=== PATIENT | female | born 1960 | race Caucasian/White ===

== ENCOUNTER 2016-09-12 10:11 | Inpatient (IN) | payer MEDICAID ==
[~2016-09-12] VITALS: Ht 160 cm; Wt 52.9 kg
[2016-09-12] MEDS ORDERED: METOCLOPRAMIDE HCL 5MG/ml INJ 2ml VIAL IV ONE (11:30)
[2016-09-12] MEDS ORDERED: KETOROLAC TROMETH 30 MG/ML 1ML VIAL IV ONE (11:30)
[2016-09-12 11:49] LABS: Basophils # (auto) 0.2 uL; Basophils % (auto) 1.9 % (0.0-2.0); DEFINITIVE VIEW TRANSMISSION; Eosinophils # (auto) 0.1 uL; Hematocrit 25.3 % (36.0-46.0); Hemoglobin 7.7 g/dL (12.2-16.2); Lymphocytes # (auto) 1.1 uL; Lymphocytes % (auto) 11.4 % (10.0-50.0); Mean Corpuscular Hemoglobin 23.6 pg (28.0-32.0); Mean Corpuscular Hgb Conc. 30.2 g/dL (32.0-36.0); Mean Platelet Volume 6.8 fL (7.4-10.4); Monocytes # (auto) 0.8 uL; Monocytes % (auto) 7.7 % (0.0-12.0); Neutrophils # (auto) 7.7 uL; Red Cell Distribution Width 16.9 % (11.6-16.0); White Blood Cell 9.9 10^3/uL (4.4-10.8)
[2016-09-12 11:54] LABS: Platelet Count (auto) 778 10^3/uL (140-450)
[2016-09-12 12:06] LABS: Albumin 2.7 g/dL (3.4-5.0); Calcium 8.5 mg/dL (8.5-10.1); Potassium 3.5 mmol/L (3.5-5.1)
[2016-09-12 12:08] LABS: BUN/Creatinine Ratio 20.5
[2016-09-12 12:11] LABS: Bilirubin, Total 0.2 mg/dL (0.2-1.0)
[2016-09-12] MEDS ORDERED: SODIUM CHLORIDE 0.9% 1,000 ML IV SCH (13:32)
[2016-09-12] MEDS ORDERED: PROMETHAZINE HCL 25 MG/ML 1ML IV PRN (13:45)
[2016-09-12] MEDS ORDERED: TEMAZEPAM 15 MG CAP PO PRN (13:45)
[2016-09-12] MEDS ORDERED: MORPHINE SULF INJ 2 MG/ML SYRINGE 1ML IV PRN (13:45)
[2016-09-12] MEDS ORDERED: HYDROcodone-ACET 5/325MG TAB PO PRN (13:45)
[2016-09-12] MEDS ORDERED: ACETAMINOPHEN 500 MG TAB PO PRN (13:45)
[2016-09-12] MEDS ORDERED: DEXTROSE (50%) 50ML SYRG IV PRN (13:45)
[2016-09-12] MEDS ORDERED: NITROGLYCERIN 0.4 MG SL TAB SL PRN (13:45)
[2016-09-12] MEDS ORDERED: LORazepam 0.5 MG TAB PO PRN (13:45)
[2016-09-12] MEDS: SODIUM CHLORIDE 0.9% 1,000 ML IV SCH ×2 (13:46→21:06)
[2016-09-12] MEDS ORDERED: PANTOPRAZOLE SODIUM 40 MG/10 ML VIAL IV ONE (14:00)
[2016-09-12 14:07] LABS: INR 1.12 (0.9-1.15); Partial Thromboplastin Time 26.6 sec (22.64-33.71); Prothrombin Time 11.5 sec (9.37-12.3)
[2016-09-12] MEDS: ACCU-CHEK COMFORT CURVE STRIP VI SCH ×2 (16:48→22:00)
[2016-09-12] MEDS: InsuLIN REG 1unit/0.01ml Soln (100units/ml) SC SCH ×2 (16:48→22:00)
[2016-09-12 16:57] LABS: Urine Bilirubin Negative (Negative); Urine Blood Negative /uL (Negative); Urine Color Yellow (Yellow); Urine Glucose Normal (Normal); Urine Ketone Negative (Negative); Urine Mucus FEW (None Seen); Urine Nitrite Negative (Negative); Urine RBC 1 /hpf (0 - 4); Urine Squamous Epithelial Cell FEW /hpf (<5)
[2016-09-12 18:08] LABS: Hematocrit 24.1 % (36.0-46.0); Hemoglobin 7.4 g/dL (12.2-16.2)
[2016-09-12 21:06] VITALS: BP_SYST 109; BP_SYST 122; BP_DIAS 68; BP_DIAS 90
[2016-09-12 21:30] VITALS: BP 122/90
[2016-09-12] MEDS: MORPHINE SULF INJ 2 MG/ML SYRINGE 1ML IV PRN (23:40)
[2016-09-13] VITALS (15 sets, daily range): BP systolic 109–149; BP diastolic 68–98
[2016-09-13 01:08] LABS: Hematocrit 22.4 % (36.0-46.0)
[2016-09-13 01:10] LABS: Hemoglobin 6.8 g/dL (12.2-16.2)
[2016-09-13] MEDS ORDERED: PIRO-23 PO (03:12)
[2016-09-13] MEDS ORDERED: HYDR200T PO (03:12)
[2016-09-13 05:04] LABS: Basophils # (auto) 0 uL; Basophils % (auto) 0.3 % (0.0-2.0); DEFINITIVE VIEW TRANSMISSION; Eosinophils # (auto) 0.1 uL; Eosinophils % (auto) 1.3 % (0.0-7.0); Hematocrit 20.8 % (36.0-46.0); Lymphocytes # (auto) 1.7 uL; Lymphocytes % (auto) 19.3 % (10.0-50.0); Mean Corpuscular Hemoglobin 23.9 pg (28.0-32.0); Mean Corpuscular Hgb Conc. 30.8 g/dL (32.0-36.0); Mean Corpuscular Volume 77.5 fL (80.0-100.0); Mean Platelet Volume 6.9 fL (7.4-10.4); Monocytes # (auto) 0.8 uL; Monocytes % (auto) 9.1 % (0.0-12.0); Platelet Count (auto) 632 10^3/uL (140-450); Red Cell Distribution Width 16.6 % (11.6-16.0); White Blood Cell 8.6 10^3/uL (4.4-10.8)
[2016-09-13 05:12] LABS: Hemoglobin 6.4 g/dL (12.2-16.2)
[2016-09-13 05:27] LABS: Albumin 2.2 g/dL (3.4-5.0); BUN/Creatinine Ratio 26.8; Bilirubin, Total 0.2 mg/dL (0.2-1.0); Calcium 7.9 mg/dL (8.5-10.1); Potassium 3.1 mmol/L (3.5-5.1); Total Protein 5.7 g/dL (6.4-8.2)
[2016-09-13] MEDS: SODIUM CHLORIDE 0.9% 1,000 ML IV SCH ×2 (05:58→13:19)
[2016-09-13] MEDS: ACCU-CHEK COMFORT CURVE STRIP VI SCH ×2 (06:36→11:58)
[2016-09-13] MEDS: InsuLIN REG 1unit/0.01ml Soln (100units/ml) SC SCH ×2 (06:37→11:30)
[2016-09-13] MEDS: PANTOPRAZOLE 40 MG TAB PO SCH (10:00)
[2016-09-13] MEDS ORDERED: GOLYTELY 4L KIT PO ONE (13:00)
[2016-09-13 14:53] LABS: Hematocrit 29.6 % (36.0-46.0); Hemoglobin 9.2 g/dL (12.2-16.2)
[2016-09-13] MEDS ORDERED: POTASSIUM CHL 20 Meq TABLET PO ONE (15:15)
[2016-09-13] MEDS: MORPHINE SULF INJ 2 MG/ML SYRINGE 1ML IV PRN (19:33)
[2016-09-14] VITALS: BP 137/91
[2016-09-14 04:00] VITALS: BP 133/94
[2016-09-14 05:40] LABS: Basophils # (auto) 0 uL; Basophils % (auto) 0.3 % (0.0-2.0); DEFINITIVE VIEW TRANSMISSION; Eosinophils # (auto) 0.1 uL; Eosinophils % (auto) 1.2 % (0.0-7.0); Hematocrit 31.3 % (36.0-46.0); Hemoglobin 9.7 g/dL (12.2-16.2); Lymphocytes # (auto) 1.1 uL; Lymphocytes % (auto) 10.6 % (10.0-50.0); Mean Corpuscular Hgb Conc. 31.1 g/dL (32.0-36.0); Mean Corpuscular Volume 80.6 fL (80.0-100.0); Mean Platelet Volume 6.8 fL (7.4-10.4); Monocytes # (auto) 0.8 uL; Monocytes % (auto) 7.7 % (0.0-12.0); Neutrophils # (auto) 8.2 uL; Neutrophils % (auto) 80.2 % (37.0-80.0); Platelet Count (auto) 630 10^3/uL (140-450); Red Cell Distribution Width 18.1 % (11.6-16.0); White Blood Cell 10.3 10^3/uL (4.4-10.8)
[2016-09-14] MEDS: SODIUM CHLORIDE 0.9% 1,000 ML IV SCH (06:50)
[2016-09-14 08:00] VITALS: BP 137/91
[2016-09-14] MEDS ORDERED: SODIUM CHLORIDE LOCK 10 ML ONE (08:11)
[2016-09-14] MEDS ORDERED: diphenhdrAMINE HCL 50 MG/1 ML VL ONE (08:12)
[2016-09-14] MEDS ORDERED: LIDOCAINE VISCOUS 2% 15ML UD ONE (08:12)
[2016-09-14] MEDS: PANTOPRAZOLE 40 MG TAB PO SCH ×2 (10:00→23:17)
[2016-09-14 12:00] VITALS: BP 148/98
[2016-09-14] MEDS ORDERED: ALBUTEROL SULF 2.5 MG/0.5ML(0.5%) NEB SOLN NEB PRN (12:00)
[2016-09-14] MEDS ORDERED: IPRATROPIUM BROM 0.5 MG/2.5ML INH SOL NEB PRN (12:00)
[2016-09-14] MEDS: fentaNYL CITRATE 100 MCG/2 ML VL ONE ×3 (12:47→12:59)
[2016-09-14] MEDS: MIDAZOLAM HCL 5 MG/ML-1ML VIAL ONE ×3 (12:47→12:59)
[2016-09-14 16:00] VITALS: BP 153/94
[2016-09-14 21:07] VITALS: BP 153/94
[2016-09-15] VITALS: BP 144/97
[2016-09-15 04:00] VITALS: BP 149/91
[2016-09-15] MEDS: SODIUM CHLORIDE 0.9% 1,000 ML IV SCH (04:13)
[2016-09-15] MEDS: MORPHINE SULF INJ 2 MG/ML SYRINGE 1ML IV PRN ×2 (04:13→18:22)
[2016-09-15 07:05] LABS: Albumin 2.7 g/dL (2.9-4.4); Alpha-1-Globulin 0.5 g/dL (0.0-0.4); Gamma Globulin 0.7 g/dL (0.4-1.8); Protein Total Serum 6.1 g/dL (6.0-8.5)
[2016-09-15 07:53] VITALS: BP 148/94
[2016-09-15 10:10] LABS: Basophils # (auto) 0 uL; Basophils % (auto) 0.4 % (0.0-2.0); DEFINITIVE VIEW TRANSMISSION; Eosinophils # (auto) 0.1 uL; Eosinophils % (auto) 0.7 % (0.0-7.0); Hematocrit 33.6 % (36.0-46.0); Hemoglobin 10.3 g/dL (12.2-16.2); Lymphocytes # (auto) 1.1 uL; Lymphocytes % (auto) 9.5 % (10.0-50.0); Mean Corpuscular Hemoglobin 24.9 pg (28.0-32.0); Mean Corpuscular Hgb Conc. 30.5 g/dL (32.0-36.0); Mean Corpuscular Volume 81.4 fL (80.0-100.0); Mean Platelet Volume 7.2 fL (7.4-10.4); Monocytes # (auto) 0.7 uL; Monocytes % (auto) 6.2 % (0.0-12.0); Neutrophils # (auto) 9.5 uL; Neutrophils % (auto) 83.2 % (37.0-80.0); Platelet Count (auto) 626 10^3/uL (140-450); Red Cell Distribution Width 18.2 % (11.6-16.0); White Blood Cell 11.4 10^3/uL (4.4-10.8)
[2016-09-15 10:12] LABS: BUN/Creatinine Ratio 14.7; Calcium 8.5 mg/dL (8.5-10.1); Potassium 3.4 mmol/L (3.5-5.1)
[2016-09-15] MEDS ORDERED: LIDOCAINE 2%HCL (LOCAL ANESTH.) INJ 20ML MDV ONE (10:41)
[2016-09-15] MEDS ORDERED: MIDAZOLAM HCL 1MG/1ML-2 ML VIAL ONE (11:01)
[2016-09-15] MEDS ORDERED: fentaNYL CITRATE 100 MCG/2 ML VL ONE (11:01)
[2016-09-15] MEDS ORDERED: POTASSIUM CHL 20 Meq TABLET PO ONE (11:45)
[2016-09-15 11:58] VITALS: BP 136/92
[2016-09-15] MEDS: PANTOPRAZOLE 40 MG TAB PO SCH ×2 (12:19→21:51)
[2016-09-15] MEDS: PRO-STAT 64 30ML PO SCH (13:00)
[2016-09-15 16:58] VITALS: BP 149/85
[2016-09-15] MEDS: Boost Glucose Control 8 Ounces PO SCH (18:23)
[2016-09-15 22:00] VITALS: BP 116/73
[2016-09-16 05:52] VITALS: BP 139/84
[2016-09-16 06:03] LABS: Basophils # (auto) 0 uL; Basophils % (auto) 0.3 % (0.0-2.0); DEFINITIVE VIEW TRANSMISSION; Eosinophils # (auto) 0.1 uL; Eosinophils % (auto) 1.3 % (0.0-7.0); Hematocrit 32.3 % (36.0-46.0); Hemoglobin 9.8 g/dL (12.2-16.2); Lymphocytes # (auto) 1.2 uL; Lymphocytes % (auto) 14.1 % (10.0-50.0); Mean Corpuscular Hemoglobin 24.5 pg (28.0-32.0); Mean Corpuscular Hgb Conc. 30.3 g/dL (32.0-36.0); Mean Corpuscular Volume 80.9 fL (80.0-100.0); Mean Platelet Volume 6.9 fL (7.4-10.4); Monocytes # (auto) 0.7 uL; Monocytes % (auto) 8.4 % (0.0-12.0); Neutrophils # (auto) 6.4 uL; Neutrophils % (auto) 75.9 % (37.0-80.0); Platelet Count (auto) 613 10^3/uL (140-450); Red Cell Distribution Width 18.6 % (11.6-16.0); White Blood Cell 8.5 10^3/uL (4.4-10.8)
[2016-09-16 08:00] VITALS: BP 133/91
[2016-09-16 08:46] VITALS: BP 133/91
[2016-09-16] MEDS: Boost Glucose Control 8 Ounces PO SCH ×2 (09:26→18:04)
[2016-09-16] MEDS: PANTOPRAZOLE 40 MG TAB PO SCH ×2 (12:07→22:49)
[2016-09-16] MEDS: PRO-STAT 64 30ML PO SCH (12:07)
[2016-09-16] MEDS: MORPHINE SULF INJ 2 MG/ML SYRINGE 1ML IV PRN ×2 (12:08→22:50)
[2016-09-16 13:00] VITALS: BP 124/56
[2016-09-16 16:45] VITALS: BP 124/76
[2016-09-16 22:13] VITALS: BP 128/87
[2016-09-17 05:00] VITALS: BP 131/78
[2016-09-17 07:00] VITALS: BP 121/80
[2016-09-17] MEDS: Boost Glucose Control 8 Ounces PO SCH ×2 (08:00→18:00)
[2016-09-17] MEDS: PRO-STAT 64 30ML PO SCH (09:48)
[2016-09-17] MEDS: PANTOPRAZOLE 40 MG TAB PO SCH ×2 (09:48→21:28)
[2016-09-17 11:29] VITALS: BP 127/78
[2016-09-17 16:47] VITALS: BP 132/84
[2016-09-17] MEDS: MORPHINE SULF INJ 2 MG/ML SYRINGE 1ML IV PRN (20:21)
[2016-09-17 21:30] VITALS: BP 132/84
[2016-09-17 22:00] VITALS: BP 132/84
[2016-09-18] VITALS (7 sets, daily range): BP systolic 119–138; BP diastolic 66–86
[2016-09-18 06:25] LABS: Hematocrit 32.7 % (36.0-46.0); Hemoglobin 10.1 g/dL (12.2-16.2)
[2016-09-18] MEDS: PANTOPRAZOLE 40 MG TAB PO SCH ×2 (09:44→22:15)
[2016-09-18] MEDS: PRO-STAT 64 30ML PO SCH (09:44)
[2016-09-18] MEDS: Boost Glucose Control 8 Ounces PO SCH ×2 (09:45→18:00)
[2016-09-18] MEDS: MORPHINE SULF INJ 2 MG/ML SYRINGE 1ML IV PRN ×3 (09:50→22:15)
[2016-09-19 05:45] VITALS: BP 119/77
[2016-09-19 08:00] VITALS: BP 118/82
[2016-09-19] MEDS: Boost Glucose Control 8 Ounces PO SCH ×2 (08:00→18:22)
[2016-09-19 09:00] VITALS: BP 118/82
[2016-09-19] MEDS: PRO-STAT 64 30ML PO SCH (09:19)
[2016-09-19] MEDS: PANTOPRAZOLE 40 MG TAB PO SCH ×2 (10:23→23:16)
[2016-09-19] MEDS: MORPHINE SULF INJ 2 MG/ML SYRINGE 1ML IV PRN ×2 (10:35→19:56)
[2016-09-19] MEDS ORDERED: TEMAZEPAM 15 MG CAP PO PRN (11:30)
[2016-09-19 13:00] VITALS: BP 125/79
[2016-09-19 17:00] VITALS: BP 112/87
[2016-09-19 21:46] VITALS: BP 121/80
[2016-09-20] VITALS (7 sets, daily range): BP systolic 103–119; BP diastolic 69–77
[2016-09-20 06:11] LABS: Hematocrit 33.5 % (36.0-46.0); Hemoglobin 10.6 g/dL (12.2-16.2)
[2016-09-20] MEDS: MORPHINE SULF INJ 2 MG/ML SYRINGE 1ML IV PRN ×2 (08:37→18:30)
[2016-09-20] MEDS: PANTOPRAZOLE 40 MG TAB PO SCH ×2 (10:15→22:05)
[2016-09-20] MEDS: Boost Glucose Control 8 Ounces PO SCH ×2 (10:16→18:20)
[2016-09-20] MEDS: PRO-STAT 64 30ML PO SCH (10:16)
[2016-09-20] MEDS: HYDROcodone-ACET 5/325MG TAB PO PRN (10:20)
[2016-09-21] MEDS: MORPHINE SULF INJ 2 MG/ML SYRINGE 1ML IV PRN ×5 (01:59→22:05)
[2016-09-21 05:42] VITALS: BP 115/76
[2016-09-21 09:00] VITALS: BP 101/65
[2016-09-21] MEDS: Boost Glucose Control 8 Ounces PO SCH ×4 (09:12→22:05)
[2016-09-21] MEDS: PANTOPRAZOLE 40 MG TAB PO SCH ×2 (09:13→22:04)
[2016-09-21] MEDS: PRO-STAT 64 30ML PO SCH (09:13)
[2016-09-21 13:00] VITALS: BP 104/69
[2016-09-21 16:59] VITALS: BP 109/71
[2016-09-21 19:50] VITALS: BP 100/61
[2016-09-21 22:34] VITALS: BP 100/61
[2016-09-22] MEDS: MORPHINE SULF INJ 2 MG/ML SYRINGE 1ML IV PRN ×5 (02:03→19:59)
[2016-09-22 05:14] VITALS: BP 105/75
[2016-09-22] MEDS: Boost Glucose Control 8 Ounces PO SCH ×6 (06:21→21:55)
[2016-09-22 09:00] VITALS: BP 104/67
[2016-09-22] MEDS: PANTOPRAZOLE 40 MG TAB PO SCH ×2 (10:00→22:09)
[2016-09-22] MEDS: PRO-STAT 64 30ML PO SCH (10:00)
[2016-09-22 13:00] VITALS: BP 104/63
[2016-09-22] MEDS: SODIUM CHLORIDE 0.9% 1,000 ML IV SCH (13:40)
[2016-09-22] MEDS ORDERED: IOHEXOL 300 MG/ML 100ML BOTTLE IJ ONE (15:34)
[2016-09-22 16:59] VITALS: BP 115/79
[2016-09-22 22:00] VITALS: BP 104/66
[2016-09-23] MEDS: MORPHINE SULF INJ 2 MG/ML SYRINGE 1ML IV PRN ×2 (01:26→05:54)
[2016-09-23 05:00] VITALS: BP 100/66
[2016-09-23] MEDS: SODIUM CHLORIDE 0.9% 1,000 ML IV SCH (05:55)
[2016-09-23] MEDS: Boost Glucose Control 8 Ounces PO SCH ×6 (06:00→21:22)
[2016-09-23 06:58] LABS: BUN/Creatinine Ratio 36.6; Calcium 8.8 mg/dL (8.5-10.1); Potassium 4.2 mmol/L (3.5-5.1)
[2016-09-23 09:00] VITALS: BP 112/68
[2016-09-23] MEDS: HYDROcodone-ACET 5/325MG TAB PO PRN ×3 (10:20→21:31)
[2016-09-23] MEDS: PANTOPRAZOLE 40 MG TAB PO SCH (10:20)
[2016-09-23] MEDS: PRO-STAT 64 30ML PO SCH (10:32)
[2016-09-23 13:00] VITALS: BP 102/71
[2016-09-23] MEDS ORDERED: PANT40TA2 PO (13:01)
[2016-09-23 14:01] LABS: INR 1.15 (0.9-1.15); Prothrombin Time 11.8 sec (9.37-12.3)
[2016-09-23 17:00] VITALS: BP 100/68
[2016-09-23 23:31] VITALS: BP 108/70
[2016-09-23 23:51] VITALS: BP 108/70
[2016-09-24] MEDS: HYDROcodone-ACET 5/325MG TAB PO PRN ×2 (02:52→10:07)
[2016-09-24 05:08] VITALS: BP 95/66
[2016-09-24] MEDS: Boost Glucose Control 8 Ounces PO SCH ×2 (06:00→08:00)
[2016-09-24 06:09] LABS: Hematocrit 32.3 % (36.0-46.0); Hemoglobin 10.3 g/dL (12.2-16.2)
[2016-09-24 09:00] VITALS: BP 97/62
[2016-09-24] MEDS: PRO-STAT 64 30ML PO SCH (10:00)
[2016-09-24] MEDS ORDERED: fentaNYL CITRATE 100 MCG/2 ML VL ONE (12:10)
[2016-09-24] MEDS ORDERED: MIDAZOLAM HCL 1MG/1ML-2 ML VIAL ONE (12:10)
[2016-09-24] MEDS ORDERED: LIDOCAINE 2%HCL (LOCAL ANESTH.) INJ 20ML MDV ONE (12:11)
[2016-09-24] MEDS ORDERED: ceFAZolin 1GM/50ML D5W 50 ML IV ONE ×2 (12:36→12:45)
[2016-09-24 12:48] VITALS: BP 97/62
[2016-09-24] MEDS ORDERED: VANCOMYCIN HCL 1000 MG VL ONE (12:56)
[2016-09-24] MEDS ORDERED: LIDOCAINE W/ EPINEPHRINE 2% INJ 20ML VIAL ONE (13:10)
[2016-09-24] MEDS ORDERED: HEPARIN 1,000 UNITS/ml 1ML VIAL ONE (13:28)
== END 2016-09-24 15:00 | disposition home or self-care (01) | DRG 950 ==
LOC: ER 10:18 → TELE 10:19 → DOU IN ICU 21:01 → WEST WING 09-15 15:20 → TELE-WESTW 09-15 21:11 → WEST WING 09-19 00:44
PROVIDERS: ADMIT Internal Medicine; ATTEND Internal Medicine
PROC: 30233N1 Transfusion of Nonautologous Red Blood Cells into Peripheral Vein, Percutaneous Approach (ICD-10-PCS; 2016-09-12)
PROC: 0WB83ZX Excision of Chest Wall, Percutaneous Approach, Diagnostic (ICD-10-PCS; 2016-09-15)
PROC: 0DB68ZX Excision of Stomach, Via Natural or Artificial Opening Endoscopic, Diagnostic (ICD-10-PCS; principal; 2016-09-24)
PROC: 0DBE8ZX Excision of Large Intestine, Via Natural or Artificial Opening Endoscopic, Diagnostic (ICD-10-PCS; 2016-09-24)
PROC: 02H633Z Insertion of Infusion Device into Right Atrium, Percutaneous Approach (ICD-10-PCS; 2016-09-24)
PROC: B2141ZZ Fluoroscopy of Right Heart using Low Osmolar Contrast (ICD-10-PCS; 2016-09-24)
PROC: B244ZZZ Ultrasonography of Right Heart (ICD-10-PCS; 2016-09-24)
PROC: 0JH60XZ Insertion of Tunneled Vascular Access Device into Chest Subcutaneous Tissue and Fascia, Open Approach (ICD-10-PCS; 2016-09-24)
DX: C18.9 Malignant neoplasm of colon, unspecified (principal); C78.00 Secondary malignant neoplasm of unspecified lung; C79.51 Secondary malignant neoplasm of bone; K76.89 Other specified diseases of liver; K86.1 Other chronic pancreatitis; J44.9 Chronic obstructive pulmonary disease, unspecified; J98.4 Other disorders of lung; K25.9 Gastric ulcer, unspecified as acute or chronic, without hemorrhage or perforation; I51.89 Other ill-defined heart diseases; R19.05 Periumbilic swelling, mass or lump; E11.9 Type 2 diabetes mellitus without complications; D50.0 Iron deficiency anemia secondary to blood loss (chronic); D50.9 Iron deficiency anemia, unspecified; M06.9 Rheumatoid arthritis, unspecified; E87.6 Hypokalemia; Z87.891 Personal history of nicotine dependence; K63.9 Disease of intestine, unspecified; D75.89 Other specified diseases of blood and blood-forming organs; Z80.3 Family history of malignant neoplasm of breast; Z85.118 Personal history of other malignant neoplasm of bronchus and lung; K59.00 Constipation, unspecified; M19.90 Unspecified osteoarthritis, unspecified site; Z98.51 Tubal ligation status; Z84.89 Family history of other specified conditions; Z83.2 Family history of diseases of the blood and blood-forming organs and certain disorders involving the immune mechanism; R59.9 Enlarged lymph nodes, unspecified; R59.1 Generalized enlarged lymph nodes
CPT/HCPCS: 10022; 36415; 36430; 43239; 45380; 71020; 71250; 74176; 74178; 76937; 77002; 77012; 78306; 80048; 80053; 80061; 81001; 82150; 82270; 82378; 82962; 83036; 83615; 83690; 83735; 84132; 84155; 84165; 85014; 85018; 85025; 85045; 85610; 85652; 85730; 86141; 86301; 86304; 86850; 86900; 86901; 86920; 87081; 88341; 96374; 96375; 99152; C9113; J0690; J1885; J2250

== ENCOUNTER 2016-10-21 09:35 | Emergency (ER) | payer MEDICAID ==
[~2016-10-21] VITALS: Ht 160 cm; Wt 37.9 kg
[~2016-10-21 09:35] MED LIST: HYDR200T PO; PANT40TA2 PO
[2016-10-21 10:16] LABS: Basophils # (auto) 0.1 uL; Basophils % (auto) 0.4 % (0.0-2.0); DEFINITIVE VIEW TRANSMISSION; Eosinophils # (auto) 0.1 uL; Eosinophils % (auto) 0.5 % (0.0-7.0); Hemoglobin 10.6 g/dL (12.2-16.2); Lymphocytes # (auto) 0.8 uL; Lymphocytes % (auto) 5.9 % (10.0-50.0); Mean Corpuscular Hemoglobin 24.9 pg (28.0-32.0); Mean Corpuscular Volume 77.7 fL (80.0-100.0); Mean Platelet Volume 6.7 fL (7.4-10.4); Monocytes # (auto) 0.9 uL; Monocytes % (auto) 6.3 % (0.0-12.0); Neutrophils # (auto) 12.6 uL; Neutrophils % (auto) 86.9 % (37.0-80.0); Red Cell Distribution Width 18.9 % (11.6-16.0); White Blood Cell 14.5 10^3/uL (4.4-10.8)
[2016-10-21 10:33] LABS: BUN/Creatinine Ratio 30.4; Bilirubin, Total 0.3 mg/dL (0.2-1.0); Calcium 9.3 mg/dL (8.5-10.1); Potassium 3.3 mmol/L (3.5-5.1); Total Protein 7.7 g/dL (6.4-8.2)
[2016-10-21 10:37] LABS: Platelet Count (auto) 771 10^3/uL (140-450)
[2016-10-21 11:12] LABS: Burr Cells FEW
[2016-10-21 11:13] LABS: Giant Platelets Few; Large Platelets FEW
[2016-10-21 11:14] LABS: Platelet Estimate Marked
[2016-10-21] MEDS ORDERED: SODIUM CHLORIDE 0.9% 1,000 ML IVB ONE (11:20)
[2016-10-21] MEDS ORDERED: ONDANSETRON HCL 4 MG/2 ML VIAL IV ONE (11:30)
[2016-10-21] MEDS ORDERED: MORPHINE SULFATE 4 MG/ML SYRG IV ONE (13:30)
[2016-10-21] MEDS ORDERED: POTASSIUM CHL 20 Meq TABLET PO ONE (13:30)
[2016-10-21 15:20] VITALS: BP 113/84
== END 2016-10-21 16:42 | disposition home or self-care (01) ==
LOC: ER 09:35
DX: E86.0 Dehydration (principal); R53.1 Weakness; E87.6 Hypokalemia; G89.29 Other chronic pain; M19.90 Unspecified osteoarthritis, unspecified site; E11.9 Type 2 diabetes mellitus without complications; Z85.9 Personal history of malignant neoplasm, unspecified; R11.2 Nausea with vomiting, unspecified
CPT/HCPCS: 36415; 80053; 85025; 93005; 94761; 96361; 96374; 96375; 99285; J2270; J2405; J7030

== ENCOUNTER 2017-01-05 08:47 | Inpatient (IN) | payer MEDICAID ==
[~2017-01-05] VITALS: Ht 160 cm; Wt 54.5 kg
[2017-01-05 10:14] LABS: Basophils # (auto) 0 uL; Basophils % (auto) 0.1 % (0.0-2.0); DEFINITIVE VIEW TRANSMISSION; Eosinophils # (auto) 0 uL; Hematocrit 31.4 % (36.0-46.0); Hemoglobin 10.1 g/dL (12.2-16.2); Lymphocytes # (auto) 0.6 uL; Lymphocytes % (auto) 6.6 % (10.0-50.0); Mean Corpuscular Hemoglobin 26.7 pg (28.0-32.0); Mean Corpuscular Hgb Conc. 32.1 g/dL (32.0-36.0); Mean Corpuscular Volume 83.1 fL (80.0-100.0); Mean Platelet Volume 6.9 fL (7.4-10.4); Monocytes # (auto) 0.7 uL; Monocytes % (auto) 7.3 % (0.0-12.0); Neutrophils # (auto) 8.3 uL; White Blood Cell 9.6 10^3/uL (4.4-10.8)
[2017-01-05 10:28] LABS: Red Cell Distribution Width 22.7 % (11.6-16.0)
[2017-01-05 10:29] LABS: Platelet Count (auto) 778 10^3/uL (140-450)
[2017-01-05 10:34] LABS: Albumin 2.2 g/dL (3.4-5.0); Anion Gap 16 (5-15); Aspartate Aminotransferase 15 U/L (15-37); BUN/Creatinine Ratio 21.6; Blood Urea Nitrogen 8 mg/dL (7-18); Calcium 8.3 mg/dL (8.5-10.1); Carbon Dioxide 27 mmol/L (21-32); Chloride 89 mmol/L (98-107); GFR African American 234 mL/min; GFR Non-African American 193 mL/min; Glucose 110 mg/dL (74-106); Magnesium 1.3 mg/dL (1.6-2.6); Sodium 132 mmol/L (136-145)
[2017-01-05 10:39] LABS: Platelet Estimate Markedly Increased
[2017-01-05 10:40] LABS: Alkaline Phosphatase 135 U/L (45-117); Anisocytosis Slight; Bilirubin, Total 0.3 mg/dL (0.2-1.0); Hypochromia Slight; Total Protein 6.3 g/dL (6.4-8.2)
[2017-01-05 11:01] LABS: Potassium 2.7 mmol/L (3.5-5.1)
[2017-01-05] MEDS ORDERED: SODIUM CHLORIDE 0.9% 1,000 ML IVB ONE (11:13)
[2017-01-05] MEDS ORDERED: MORPHINE SULF INJ 2 MG/ML SYRINGE 1ML IV ONE (11:15)
[2017-01-05] MEDS ORDERED: ONDANSETRON HCL 4 MG/2 ML VIAL IV ONE (11:15)
[2017-01-05] MEDS: MAGNESIUM SULFATE 1GM/100ML 100 ML IV SCH ×2 (12:08→13:04)
[2017-01-05] MEDS: POTASSIUM CHL 20MEQ/100ML 100 ML IV SCH ×2 (12:08→13:05)
[2017-01-05] MEDS ORDERED: SOD CHL 0.9%/ KCL 40MEQ 1,000 ML IV ONE (13:00)
[2017-01-05] MEDS ORDERED: DEXTROSE (50%) 50ML SYRG IV PRN (13:00)
[2017-01-05] MEDS ORDERED: HYDROcodone-ACET 5/325MG TAB PO PRN (13:00)
[2017-01-05] MEDS ORDERED: NITROGLYCERIN 0.4 MG SL TAB SL PRN (13:00)
[2017-01-05] MEDS ORDERED: MORPHINE SULF INJ 2 MG/ML SYRINGE 1ML IV PRN (13:00)
[2017-01-05] MEDS ORDERED: POTASSIUM CHL 20 Meq TABLET PO ONE ×2 (13:00→14:30)
[2017-01-05] MEDS ORDERED: ACETAMINOPHEN 500 MG TAB PO PRN (13:00)
[2017-01-05] MEDS ORDERED: TEMAZEPAM 15 MG CAP PO PRN (13:00)
[2017-01-05] MEDS ORDERED: LORazepam 0.5 MG TAB PO PRN (13:00)
[2017-01-05] MEDS ORDERED: FAMOTIDINE (10MG/ML) 2ML VL IV SCH (13:00)
[2017-01-05 13:20] LABS: Amylase 50 U/L (25-115)
[2017-01-05 13:54] VITALS: BP 135/95
[2017-01-05] MEDS ORDERED: HYDR-531 PO (16:29)
[2017-01-05] MEDS ORDERED: FOLI1TAB6 PO (16:29)
[2017-01-05] MEDS ORDERED: OMEP20CA74 PO (16:29)
[2017-01-05] MEDS ORDERED: PRO10T PO (16:29)
[2017-01-05] MEDS ORDERED: MORP30TA PO (16:29)
[2017-01-05 16:46] VITALS: BP 146/92
[2017-01-05] MEDS: InsuLIN REG 1unit/0.01ml Soln (100units/ml) SC SCH (17:57)
[2017-01-05] MEDS: ACCU-CHEK COMFORT CURVE STRIP VI SCH (17:57)
[2017-01-05] MEDS: MORPHINE SULF INJ 2 MG/ML SYRINGE 1ML IV PRN (20:17)
[2017-01-05 22:00] VITALS: BP 148/102
[2017-01-05] MEDS: PROMETHAZINE HCL 25 MG/ML 1ML IV PRN (22:06)
[2017-01-05] MEDS: PANTOPRAZOLE 40 MG TAB PO SCH (22:07)
[2017-01-06 01:37] LABS: Urine RBC None Seen /hpf (0 - 4)
[2017-01-06 02:29] LABS: Urine Bilirubin Negative (Negative); Urine Blood Negative /uL (Negative); Urine Color Yellow (Yellow); Urine Glucose Normal (Normal); Urine Ketone Negative (Negative); Urine Mucus FEW (None Seen); Urine Nitrite Negative (Negative); Urine Squamous Epithelial Cell FEW /hpf (<5); Urine Urobilinogen Normal (Negative); Urine pH 7.5 (5.0-8.0)
[2017-01-06] MEDS: PROMETHAZINE HCL 25 MG/ML 1ML IV PRN ×2 (02:44→07:00)
[2017-01-06] MEDS: MORPHINE SULF INJ 2 MG/ML SYRINGE 1ML IV PRN ×2 (02:45→07:00)
[2017-01-06 05:00] VITALS: BP 145/100
[2017-01-06] MEDS: ACCU-CHEK COMFORT CURVE STRIP VI SCH ×3 (06:00→11:16)
[2017-01-06] MEDS: InsuLIN REG 1unit/0.01ml Soln (100units/ml) SC SCH ×3 (06:00→11:16)
[2017-01-06 06:04] LABS: Basophils # (auto) 0 uL; Basophils % (auto) 0.1 % (0.0-2.0); DEFINITIVE VIEW TRANSMISSION; Eosinophils # (auto) 0 uL; Hematocrit 30.9 % (36.0-46.0); Lymphocytes # (auto) 0.5 uL; Lymphocytes % (auto) 4.5 % (10.0-50.0); Mean Corpuscular Hemoglobin 26.9 pg (28.0-32.0); Mean Corpuscular Hgb Conc. 32.4 g/dL (32.0-36.0); Mean Platelet Volume 6.8 fL (7.4-10.4); Monocytes # (auto) 0.8 uL; Monocytes % (auto) 7.5 % (0.0-12.0); Neutrophils # (auto) 9.4 uL; Neutrophils % (auto) 87.9 % (37.0-80.0); White Blood Cell 10.6 10^3/uL (4.4-10.8)
[2017-01-06 06:21] LABS: Albumin 2.2 g/dL (3.4-5.0); BUN/Creatinine Ratio 16.2; Calcium 8.3 mg/dL (8.5-10.1); Potassium 4.4 mmol/L (3.5-5.1)
[2017-01-06 06:26] LABS: Red Cell Distribution Width 21.7 % (11.6-16.0)
[2017-01-06 06:27] LABS: Platelet Count (auto) 763 10^3/uL (140-450)
[2017-01-06 06:30] LABS: Bilirubin, Total 0.4 mg/dL (0.2-1.0); Total Protein 6.7 g/dL (6.4-8.2)
[2017-01-06 07:57] LABS: Anisocytosis Slight; Hypochromia Slight; Platelet Estimate Markedly Increased
[2017-01-06 07:58] LABS: Burr Cells FEW; Ovalocytes FEW; Tear Drop Cells FEW
[2017-01-06 08:00] VITALS: BP 145/100
[2017-01-06 08:49] VITALS: BP 139/103
[2017-01-06] MEDS: HYDROXYCHLOROQUINE SULFATE 200 MG TAB PO SCH (10:09)
[2017-01-06] MEDS: PANTOPRAZOLE 40 MG TAB PO SCH ×2 (10:09→21:17)
[2017-01-06] MEDS ORDERED: LACTULOSE 20Gm/30ML SOLN PO PRN (12:15)
[2017-01-06] MEDS ORDERED: cloNIDine HCL 0.1 MG TAB PO PRN (12:45)
[2017-01-06 13:00] VITALS: BP 145/107
[2017-01-06] MEDS: HYDROmorphone HCL 2 MG/ML VL IV PRN ×2 (14:03→20:15)
[2017-01-06 17:00] VITALS: BP 124/101
[2017-01-06] MEDS: DOCUSATE SOD 100 MG CAP PO SCH (21:17)
[2017-01-06 22:00] VITALS: BP 124/90
[2017-01-07] MEDS: HYDROmorphone HCL 2 MG/ML VL IV PRN ×5 (00:22→20:00)
[2017-01-07 05:00] VITALS: BP 121/95
[2017-01-07 06:30] LABS: Basophils # (auto) 0 uL; Basophils % (auto) 0.1 % (0.0-2.0); DEFINITIVE VIEW TRANSMISSION; Eosinophils # (auto) 0 uL; Hematocrit 30.8 % (36.0-46.0); Hemoglobin 10.1 g/dL (12.2-16.2); Lymphocytes # (auto) 0.7 uL; Lymphocytes % (auto) 6.2 % (10.0-50.0); Mean Corpuscular Hemoglobin 27.1 pg (28.0-32.0); Mean Corpuscular Hgb Conc. 32.7 g/dL (32.0-36.0); Mean Platelet Volume 6.9 fL (7.4-10.4); Monocytes # (auto) 0.8 uL; Monocytes % (auto) 7.5 % (0.0-12.0); Neutrophils # (auto) 9.7 uL; Neutrophils % (auto) 86.2 % (37.0-80.0); SUSPECT VIEW TRANSMISSION; White Blood Cell 11.2 10^3/uL (4.4-10.8)
[2017-01-07] MEDS: ALBUTEROL SULF 2.5 MG/0.5ML(0.5%) NEB SOLN NEB PRN (06:34)
[2017-01-07 06:46] LABS: Red Cell Distribution Width 21.5 % (11.6-16.0)
[2017-01-07 06:47] LABS: BUN/Creatinine Ratio 29.4; Calcium 8.7 mg/dL (8.5-10.1); Magnesium 1.3 mg/dL (1.6-2.6); Platelet Count (auto) 769 10^3/uL (140-450); Potassium 3.4 mmol/L (3.5-5.1)
[2017-01-07 07:26] LABS: Platelet Estimate Markedly Increased
[2017-01-07 07:27] LABS: Anisocytosis Slight; Burr Cells FEW; Hypochromia Slight
[2017-01-07 07:28] LABS: Ovalocytes FEW; Tear Drop Cells FEW
[2017-01-07 09:12] VITALS: BP 129/92
[2017-01-07] MEDS ORDERED: FLEET ENEMA(ADULT) 135 ML PR ONE (09:45)
[2017-01-07] MEDS: PANTOPRAZOLE 40 MG TAB PO SCH ×2 (10:20→22:29)
[2017-01-07] MEDS: DOCUSATE SOD 100 MG CAP PO SCH ×2 (10:20→22:29)
[2017-01-07] MEDS: HYDROXYCHLOROQUINE SULFATE 200 MG TAB PO SCH (10:20)
[2017-01-07] MEDS ORDERED: POTASSIUM CHL 20 Meq TABLET PO ONE (10:30)
[2017-01-07] MEDS: MAGNESIUM SULFATE 1GM/100ML 100 ML IV SCH ×2 (11:08→14:44)
[2017-01-07 13:56] VITALS: BP 122/94
[2017-01-07] MEDS ORDERED: IOHEXOL 350 MG/ML 100ML IJ ONE (14:34)
[2017-01-07] MEDS: SODIUM CHLORIDE 0.9% 1,000 ML IV SCH (15:06)
[2017-01-07 17:00] VITALS: BP 113/82
[2017-01-07] MEDS: Boost Glucose Control 8 Ounces PO SCH (21:34)
[2017-01-07] MEDS: PRO-STAT 64 30ML PO SCH (21:35)
[2017-01-07 22:00] VITALS: BP 121/92
[2017-01-07] MEDS: APIXABAN 5 MG TAB PO SCH (22:29)
[2017-01-08] MEDS: HYDROmorphone HCL 2 MG/ML VL IV PRN ×6 (00:08→22:58)
[2017-01-08 05:00] VITALS: BP 124/94
[2017-01-08] MEDS: Boost Glucose Control 8 Ounces PO SCH ×3 (06:00→21:47)
[2017-01-08 06:10] LABS: Basophils # (auto) 0 uL; Basophils % (auto) 0.2 % (0.0-2.0); DEFINITIVE VIEW TRANSMISSION; Eosinophils # (auto) 0 uL; Hematocrit 29.6 % (36.0-46.0); Hemoglobin 9.5 g/dL (12.2-16.2); Lymphocytes # (auto) 0.6 uL; Lymphocytes % (auto) 5.2 % (10.0-50.0); Mean Corpuscular Hgb Conc. 32.2 g/dL (32.0-36.0); Mean Corpuscular Volume 83.7 fL (80.0-100.0); Mean Platelet Volume 6.6 fL (7.4-10.4); Monocytes # (auto) 0.8 uL; Monocytes % (auto) 7.6 % (0.0-12.0); Neutrophils # (auto) 9.7 uL; Platelet Count (auto) 747 10^3/uL (140-450); White Blood Cell 11.2 10^3/uL (4.4-10.8)
[2017-01-08 06:15] LABS: Red Cell Distribution Width 21.1 % (11.6-16.0)
[2017-01-08 06:45] LABS: BUN/Creatinine Ratio 34.1; Calcium 7.9 mg/dL (8.5-10.1); Magnesium 1.6 mg/dL (1.6-2.6); Potassium 3.3 mmol/L (3.5-5.1)
[2017-01-08 07:37] LABS: Anisocytosis Slight; Hypochromia Slight; Large Platelets FEW; Ovalocytes FEW; Platelet Estimate Markedly Increased; Tear Drop Cells FEW
[2017-01-08 09:00] VITALS: BP 124/68
[2017-01-08] MEDS: DOCUSATE SOD 100 MG CAP PO SCH ×2 (09:17→21:57)
[2017-01-08] MEDS: HYDROXYCHLOROQUINE SULFATE 200 MG TAB PO SCH (09:17)
[2017-01-08] MEDS: APIXABAN 5 MG TAB PO SCH ×2 (09:17→21:57)
[2017-01-08] MEDS: PANTOPRAZOLE 40 MG TAB PO SCH ×2 (09:18→21:58)
[2017-01-08] MEDS: PRO-STAT 64 30ML PO SCH ×2 (09:18→21:47)
[2017-01-08] MEDS: SODIUM CHLORIDE 0.9% 1,000 ML IV SCH (11:11)
[2017-01-08 12:46] VITALS: BP 119/73
[2017-01-08] MEDS: ALBUTEROL SULF 2.5 MG/0.5ML(0.5%) NEB SOLN NEB PRN (13:41)
[2017-01-08 16:25] VITALS: BP 115/85
[2017-01-08 22:00] VITALS: BP 125/92
[2017-01-09] MEDS: SODIUM CHLORIDE 0.9% 1,000 ML IV SCH ×2 (00:07→17:29)
[2017-01-09] MEDS: HYDROmorphone HCL 2 MG/ML VL IV PRN ×5 (03:34→23:50)
[2017-01-09 05:04] VITALS: BP 127/94
[2017-01-09] MEDS: Boost Glucose Control 8 Ounces PO SCH ×3 (05:38→20:59)
[2017-01-09 09:00] VITALS: BP 125/98
[2017-01-09] MEDS: PRO-STAT 64 30ML PO SCH ×2 (10:00→21:00)
[2017-01-09] MEDS: DOCUSATE SOD 100 MG CAP PO SCH ×2 (10:35→21:00)
[2017-01-09] MEDS: PANTOPRAZOLE 40 MG TAB PO SCH ×2 (10:35→21:00)
[2017-01-09] MEDS: APIXABAN 5 MG TAB PO SCH ×2 (10:36→21:00)
[2017-01-09] MEDS: HYDROXYCHLOROQUINE SULFATE 200 MG TAB PO SCH (10:36)
[2017-01-09 13:00] VITALS: BP 122/86
[2017-01-09 17:00] VITALS: BP 127/90
[2017-01-09] MEDS: MORPHINE SULF INJ 2 MG/ML SYRINGE 1ML IV PRN (17:29)
[2017-01-09] MEDS: ALBUTEROL SULF 2.5 MG/0.5ML(0.5%) NEB SOLN NEB PRN (17:41)
[2017-01-09 22:00] VITALS: BP 120/79
[2017-01-10] MEDS: HYDROmorphone HCL 2 MG/ML VL IV PRN ×3 (03:34→10:16)
[2017-01-10 05:00] VITALS: BP 120/80
[2017-01-10] MEDS: Boost Glucose Control 8 Ounces PO SCH (05:35)
[2017-01-10 08:22] VITALS: BP 133/84
[2017-01-10] MEDS: SODIUM CHLORIDE 0.9% 1,000 ML IV SCH (10:14)
[2017-01-10] MEDS: PANTOPRAZOLE 40 MG TAB PO SCH (10:14)
[2017-01-10] MEDS: APIXABAN 5 MG TAB PO SCH (10:15)
[2017-01-10] MEDS: HYDROXYCHLOROQUINE SULFATE 200 MG TAB PO SCH (10:15)
[2017-01-10] MEDS: DOCUSATE SOD 100 MG CAP PO SCH (10:15)
[2017-01-10] MEDS ORDERED: POTASSIUM CHL 20 Meq TABLET PO ONE (10:45)
[2017-01-10 11:00] LABS: Basophils # (auto) 0.1 uL; Basophils % (auto) 0.9 % (0.0-2.0); DEFINITIVE VIEW TRANSMISSION; Eosinophils # (auto) 0 uL; Hematocrit 25.3 % (36.0-46.0); Hemoglobin 8.1 g/dL (12.2-16.2); Lymphocytes # (auto) 0.6 uL; Lymphocytes % (auto) 4.9 % (10.0-50.0); Mean Corpuscular Hemoglobin 26.7 pg (28.0-32.0); Mean Corpuscular Hgb Conc. 31.8 g/dL (32.0-36.0); Mean Corpuscular Volume 83.9 fL (80.0-100.0); Mean Platelet Volume 6.4 fL (7.4-10.4); Monocytes # (auto) 0.8 uL; Monocytes % (auto) 6.2 % (0.0-12.0); Neutrophils # (auto) 10.7 uL; Platelet Count (auto) 636 10^3/uL (140-450); Red Cell Distribution Width 19.8 % (11.6-16.0); SUSPECT VIEW TRANSMISSION; White Blood Cell 12.2 10^3/uL (4.4-10.8)
[2017-01-10 11:21] VITALS: BP 133/84
[2017-01-10 11:21] LABS: BUN/Creatinine Ratio 61.5; Magnesium 1.4 mg/dL (1.6-2.6); Potassium 3.1 mmol/L (3.5-5.1)
[2017-01-10 12:25] VITALS: BP 119/82
[2017-01-10 14:52] LABS: Platelet Estimate Increased
[2017-01-10 14:53] LABS: Burr Cells FEW
[2017-01-10 14:54] LABS: Anisocytosis Slight; Hypochromia Slight; Ovalocytes FEW
[2017-01-10 14:55] LABS: Tear Drop Cells FEW
[2017-01-14] MEDS ORDERED: APIXABAN 5 MG TAB PO SCH (22:00)
== END 2017-01-10 12:40 | disposition left against medical advice (07) | DRG 254 ==
LOC: ER 09:10 → TELE 09:11 → TELE-E-ADS 15:02 → TELE-CENTR 16:44
PROVIDERS: ADMIT Internal Medicine; ATTEND Internal Medicine
DX: K59.00 Constipation, unspecified (principal); I26.99 Other pulmonary embolism without acute cor pulmonale; L89.94 Pressure ulcer of unspecified site, stage 4; C79.89 Secondary malignant neoplasm of other specified sites; C79.51 Secondary malignant neoplasm of bone; E87.8 Other disorders of electrolyte and fluid balance, not elsewhere classified; E83.42 Hypomagnesemia; E87.1 Hypo-osmolality and hyponatremia; C18.9 Malignant neoplasm of colon, unspecified; C34.90 Malignant neoplasm of unspecified part of unspecified bronchus or lung; J44.9 Chronic obstructive pulmonary disease, unspecified; D75.89 Other specified diseases of blood and blood-forming organs; I10 Essential (primary) hypertension; E87.6 Hypokalemia; M06.9 Rheumatoid arthritis, unspecified; D50.9 Iron deficiency anemia, unspecified; E11.9 Type 2 diabetes mellitus without complications; F32.9 Major depressive disorder, single episode, unspecified; M19.90 Unspecified osteoarthritis, unspecified site; Z98.51 Tubal ligation status; Z80.9 Family history of malignant neoplasm, unspecified; Z80.2 Family history of malignant neoplasm of other respiratory and intrathoracic organs; Z83.42 Family history of familial hypercholesterolemia; R00.0 Tachycardia, unspecified
CPT/HCPCS: 36415; 71010; 71275; 74176; 80048; 80053; 81001; 82150; 82962; 83036; 83690; 83735; 84484; 85025; 85379; 87086; 93005; 93970; 94640; 94761; 96361; 96365; 96366; 96375; 97116; 97530; J2405; J3480

== ENCOUNTER 2017-01-16 02:01 | Inpatient (IN) | payer MEDICAID ==
[2017-01-16] VITALS (16 sets, daily range): BP systolic 87–104; BP diastolic 56–85
[~2017-01-16] VITALS: Ht 160 cm; Wt 67.2 kg
[~2017-01-16 02:01] MED LIST changes: +FOLI1TAB6 PO; +HYDR-531 PO; +MORP30TA PO; +OMEP20CA74 PO; +PRO10T PO
[2017-01-16 04:24] LABS: CONDITION AutoValidated; DEFINITIVE SEE PRINTOUT; Hematocrit 10.4 % (36.0-46.0); Mean Corpuscular Hgb Conc. 33.5 g/dL (32.0-36.0); Mean Corpuscular Volume 92.5 fL (80.0-100.0); Mean Platelet Volume 6.9 fL (7.4-10.4); Platelet Count (auto) 445 10^3/uL (140-450); SUSPECT SEE PRINTOUT; White Blood Cell 25.8 10^3/uL (4.4-10.8)
[2017-01-16 04:40] LABS: Hemoglobin 3.5 g/dL (12.2-16.2)
[2017-01-16 04:41] LABS: Promyelocytes % 0; Reactive Lymphocytes 0
[2017-01-16 04:46] LABS: B-Type Natriuretic Peptide 223.55 pg/mL (0-100)
[2017-01-16 04:52] LABS: Urine RBC None Seen /hpf (0 - 4)
[2017-01-16 04:52] LABS: Albumin 1.7 g/dL (3.4-5.0); BUN/Creatinine Ratio 38.6; Calcium 7.6 mg/dL (8.5-10.1); Potassium 3.3 mmol/L (3.5-5.1)
[2017-01-16 04:55] LABS: Bilirubin, Total 0.2 mg/dL (0.2-1.0); Total Protein 5.3 g/dL (6.4-8.2)
[2017-01-16 04:57] LABS: Partial Thromboplastin Time 23.7 sec (22.64-33.71)
[2017-01-16 05:12] LABS: INR 1.21 (0.9-1.15); Prothrombin Time 13.2 sec (9.37-12.3)
[2017-01-16 05:25] LABS: Urine Bilirubin Negative (Negative); Urine Blood Negative /uL (Negative); Urine Color Yellow (Yellow); Urine Glucose Normal (Normal); Urine Ketone Negative (Negative); Urine Mucus FEW (None Seen); Urine Nitrite Negative (Negative); Urine Squamous Epithelial Cell FEW /hpf (<5); Urine pH 6.5 (5.0-8.0)
[2017-01-16 06:43] LABS: Metamyelocytes % 1; Myelocytes % 1
[2017-01-16 06:44] LABS: Platelet Estimate Increased
[2017-01-16 06:45] LABS: Anisocytosis Moderate; Ovalocytes FEW; Polychromasia Slight; Tear Drop Cells FEW
[2017-01-16] MEDS ORDERED: ONDA4TAB5 PO (09:49)
[2017-01-16] MEDS ORDERED: MORP1CAP32 PO (09:49)
[2017-01-16] MEDS ORDERED: POTA20TA53 PO (09:49)
[2017-01-16] MEDS ORDERED: APIX5TAB OR (09:49)
[2017-01-16] MEDS ORDERED: ONDANSETRON HCL 4 MG/2 ML VIAL IV PRN (10:00)
[2017-01-16] MEDS ORDERED: NITROGLYCERIN 0.4 MG SL TAB SL PRN (10:00)
[2017-01-16] MEDS ORDERED: POTASSIUM CHLORIDE 8 MEQ TAB PO ONE (10:00)
[2017-01-16] MEDS ORDERED: ACETAMINOPHEN 325 MG TAB PO PRN (10:00)
[2017-01-16] MEDS ORDERED: TEMAZEPAM 15 MG CAP PO PRN (10:00)
[2017-01-16] MEDS ORDERED: DEXTROSE (50%) 50ML SYRG IV PRN (10:00)
[2017-01-16] MEDS ORDERED: MORPHINE SULF INJ 2 MG/ML SYRINGE 1ML IV PRN (10:00)
[2017-01-16] MEDS ORDERED: DOCUSATE SOD 100 MG CAP PO PRN (10:00)
[2017-01-16] MEDS ORDERED: FAMOTIDINE (10MG/ML) 2ML VL IV SCH (10:00)
[2017-01-16] MEDS ORDERED: AZITHROMYCIN 500MG/D5W 250ML 250 ML IV ONE (10:15)
[2017-01-16] MEDS ORDERED: cefTRIAXone 1GM/50ML D5W 50 ML IV ONE (10:15)
[2017-01-16] MEDS: PANTOPRAZOLE SODIUM 40 MG/10 ML VIAL IV SCH ×2 (11:38→21:57)
[2017-01-16] MEDS: SODIUM CHLORIDE 0.9% 1,000 ML IV SCH (11:38)
[2017-01-16] MEDS: FOLIC ACID 1 MG TAB PO SCH (11:39)
[2017-01-16] MEDS: HYDROXYCHLOROQUINE SULFATE 200 MG TAB PO SCH (11:39)
[2017-01-16] MEDS: MULTIPLE VITAMIN TAB PO SCH (11:39)
[2017-01-16] MEDS: MORPHINE SULF 30 mg ER tab PO SCH ×2 (11:39→21:57)
[2017-01-16] MEDS: ACCU-CHEK COMFORT CURVE STRIP VI SCH ×3 (11:42→21:58)
[2017-01-16] MEDS: InsuLIN REG 1unit/0.01ml Soln (100units/ml) SC SCH ×3 (11:44→22:00)
[2017-01-16] MEDS: Boost Glucose Control 8 Ounces PO SCH ×3 (12:55→21:57)
[2017-01-16 13:23] LABS: Hematocrit 29.3 % (36.0-46.0); Hemoglobin 9.7 g/dL (12.2-16.2)
[2017-01-16 13:42] LABS: Lactic Acid w/Reflex 2.6 mmol/L (0.4-2.0)
[2017-01-16 14:17] LABS: REFLEX LACTIC ACID YES OR NO YES
[2017-01-16] MEDS: MORPHINE SULF INJ 2 MG/ML SYRINGE 1ML IV PRN (19:55)
[2017-01-17] MEDS: SODIUM CHLORIDE 0.9% 1,000 ML IV SCH (02:52)
[2017-01-17] MEDS: MORPHINE SULF INJ 2 MG/ML SYRINGE 1ML IV PRN (04:21)
[2017-01-17 04:38] VITALS: BP 100/70
[2017-01-17] MEDS: Boost Glucose Control 8 Ounces PO SCH ×4 (05:38→21:38)
[2017-01-17 06:25] LABS: CONDITION AutoValidated; Hematocrit 26.2 % (36.0-46.0); Hemoglobin 8.8 g/dL (12.2-16.2); Mean Corpuscular Hemoglobin 29.8 pg (28.0-32.0); Mean Corpuscular Hgb Conc. 33.6 g/dL (32.0-36.0); Mean Corpuscular Volume 88.7 fL (80.0-100.0); Mean Platelet Volume 7.1 fL (7.4-10.4); Platelet Count (auto) 348 10^3/uL (140-450); Red Cell Distribution Width 15.6 % (11.6-16.0); SUSPECT SEE PRINTOUT; White Blood Cell 20.7 10^3/uL (4.4-10.8)
[2017-01-17 06:28] LABS: Metamyelocytes % 0; Myelocytes % 0; Promyelocytes % 0; Reactive Lymphocytes 0
[2017-01-17] MEDS: ACCU-CHEK COMFORT CURVE STRIP VI SCH ×2 (06:29→11:25)
[2017-01-17] MEDS: InsuLIN REG 1unit/0.01ml Soln (100units/ml) SC SCH ×2 (06:29→11:25)
[2017-01-17 07:09] LABS: Amylase 117 U/L (25-115)
[2017-01-17 07:23] LABS: Albumin 1.6 g/dL (3.4-5.0); BUN/Creatinine Ratio 69.2; Bilirubin, Total 0.3 mg/dL (0.2-1.0); Calcium 7.5 mg/dL (8.5-10.1); Potassium 3.4 mmol/L (3.5-5.1)
[2017-01-17 07:35] LABS: Platelet Estimate Adequate
[2017-01-17 08:39] VITALS: BP 112/79
[2017-01-17] MEDS: cefTRIAXone 1GM/50ML D5W 50 ML IV SCH (08:49)
[2017-01-17] MEDS: AZITHROMYCIN 500MG/D5W 250ML 250 ML IV SCH (09:49)
[2017-01-17] MEDS: PANTOPRAZOLE SODIUM 40 MG/10 ML VIAL IV SCH ×2 (09:49→21:38)
[2017-01-17] MEDS: MULTIPLE VITAMIN TAB PO SCH (09:49)
[2017-01-17] MEDS: MORPHINE SULF 30 mg ER tab PO SCH ×2 (09:50→21:39)
[2017-01-17] MEDS: HYDROXYCHLOROQUINE SULFATE 200 MG TAB PO SCH (09:50)
[2017-01-17] MEDS: FOLIC ACID 1 MG TAB PO SCH (09:52)
[2017-01-17] MEDS ORDERED: LACTULOSE 20Gm/30ML SOLN PO PRN (11:30)
[2017-01-17 12:34] VITALS: BP 112/77
[2017-01-17] MEDS ORDERED: MAGNESIUM SULFATE 1GM/100ML 100 ML IV ONE (13:30)
[2017-01-17] MEDS ORDERED: POTASSIUM CHL 20 Meq TABLET PO ONE (13:45)
[2017-01-17] MEDS: HYDROcodone-ACET 5/325MG TAB PO PRN (15:01)
[2017-01-17 16:40] VITALS: BP 113/80
[2017-01-17] MEDS: DOCUSATE SOD 100 MG CAP PO SCH (21:38)
[2017-01-17] MEDS: PRO-STAT 64 30ML PO SCH (21:39)
[2017-01-17 21:43] VITALS: BP 99/69
[2017-01-18] MEDS: HYDROcodone-ACET 5/325MG TAB PO PRN ×3 (04:57→18:36)
[2017-01-18 05:00] VITALS: BP 129/78
[2017-01-18] MEDS: Boost Glucose Control 8 Ounces PO SCH ×4 (05:59→21:44)
[2017-01-18 06:50] LABS: CONDITION Y; Hemoglobin 9.1 g/dL (12.2-16.2); Mean Corpuscular Hemoglobin 30.6 pg (28.0-32.0); Mean Corpuscular Hgb Conc. 33.8 g/dL (32.0-36.0); Mean Corpuscular Volume 90.4 fL (80.0-100.0); Mean Platelet Volume 6.8 fL (7.4-10.4); Platelet Count (auto) 307 10^3/uL (140-450); Red Cell Distribution Width 15.8 % (11.6-16.0); SUSPECT SEE PRINTOUT
[2017-01-18 06:59] LABS: Metamyelocytes % 0; Myelocytes % 0; Promyelocytes % 0; Reactive Lymphocytes 0
[2017-01-18 07:38] LABS: Albumin 1.6 g/dL (3.4-5.0); Bilirubin, Total 0.4 mg/dL (0.2-1.0); Calcium 7.5 mg/dL (8.5-10.1); Magnesium 1.9 mg/dL (1.6-2.6); Potassium 3.2 mmol/L (3.5-5.1); Total Protein 5.1 g/dL (6.4-8.2)
[2017-01-18 07:47] LABS: Platelet Estimate Adequate
[2017-01-18 07:54] LABS: Anisocytosis Slight; Macrocytosis Slight
[2017-01-18 07:55] LABS: Large Platelets FEW
[2017-01-18 07:57] LABS: Polychromasia Slight; Schistocytes FEW
[2017-01-18 08:26] VITALS: BP 136/90
[2017-01-18] MEDS: cefTRIAXone 1GM/50ML D5W 50 ML IV SCH (09:39)
[2017-01-18] MEDS: PANTOPRAZOLE SODIUM 40 MG/10 ML VIAL IV SCH ×2 (09:39→21:43)
[2017-01-18] MEDS: DOCUSATE SOD 100 MG CAP PO SCH ×2 (09:40→21:46)
[2017-01-18] MEDS: HYDROXYCHLOROQUINE SULFATE 200 MG TAB PO SCH (09:41)
[2017-01-18] MEDS: FOLIC ACID 1 MG TAB PO SCH (09:41)
[2017-01-18] MEDS: MULTIPLE VITAMIN TAB PO SCH (09:42)
[2017-01-18] MEDS: MORPHINE SULF 30 mg ER tab PO SCH ×2 (09:42→21:43)
[2017-01-18] MEDS: AZITHROMYCIN 500MG/D5W 250ML 250 ML IV SCH (09:43)
[2017-01-18] MEDS: SODIUM CHLORIDE 0.9% 1,000 ML IV SCH (09:44)
[2017-01-18] MEDS: PRO-STAT 64 30ML PO SCH ×2 (10:00→21:44)
[2017-01-18 12:14] VITALS: BP 144/85
[2017-01-18] MEDS ORDERED: POTASSIUM CHL 20 Meq TABLET PO ONE (14:45)
[2017-01-18] MEDS ORDERED: MAGNESIUM SULFATE 1GM/100ML 100 ML IV ONE (14:45)
[2017-01-18 16:16] VITALS: BP 111/80
[2017-01-18 21:10] VITALS: BP 118/76
[2017-01-19] VITALS (10 sets, daily range): BP systolic 94–122; BP diastolic 65–90
[2017-01-19] MEDS: Boost Glucose Control 8 Ounces PO SCH ×4 (05:15→22:19)
[2017-01-19] MEDS: SODIUM CHLORIDE 0.9% 1,000 ML IV SCH (05:16)
[2017-01-19 06:32] LABS: CONDITION Y; DEFINITIVE SEE PRINTOUT; Hematocrit 20.6 % (36.0-46.0); Mean Corpuscular Hemoglobin 30.2 pg (28.0-32.0); Mean Corpuscular Hgb Conc. 33.2 g/dL (32.0-36.0); Mean Corpuscular Volume 90.8 fL (80.0-100.0); Mean Platelet Volume 7.3 fL (7.4-10.4); Platelet Count (auto) 286 10^3/uL (140-450); Red Cell Distribution Width 15.8 % (11.6-16.0)
[2017-01-19 06:34] LABS: Hemoglobin 6.9 g/dL (12.2-16.2)
[2017-01-19 06:35] LABS: Metamyelocytes % 0; Myelocytes % 0; Promyelocytes % 0; Reactive Lymphocytes 0
[2017-01-19 06:46] LABS: Magnesium 1.7 mg/dL (1.6-2.6); Potassium 4.2 mmol/L (3.5-5.1)
[2017-01-19 06:49] LABS: BUN/Creatinine Ratio 94.4; Calcium 7.5 mg/dL (8.5-10.1)
[2017-01-19] MEDS: HYDROcodone-ACET 5/325MG TAB PO PRN (09:05)
[2017-01-19] MEDS: HYDROXYCHLOROQUINE SULFATE 200 MG TAB PO SCH (09:42)
[2017-01-19] MEDS: MORPHINE SULF 30 mg ER tab PO SCH ×2 (09:42→22:18)
[2017-01-19] MEDS: DOCUSATE SOD 100 MG CAP PO SCH ×2 (09:42→22:00)
[2017-01-19] MEDS: cefTRIAXone 1GM/50ML D5W 50 ML IV SCH (09:42)
[2017-01-19] MEDS: PANTOPRAZOLE SODIUM 40 MG/10 ML VIAL IV SCH ×2 (09:42→22:18)
[2017-01-19] MEDS: FOLIC ACID 1 MG TAB PO SCH (09:43)
[2017-01-19] MEDS: MULTIPLE VITAMIN TAB PO SCH (09:43)
[2017-01-19] MEDS: PRO-STAT 64 30ML PO SCH ×2 (09:51→22:19)
[2017-01-19 11:20] LABS: Anisocytosis Moderate; Platelet Estimate Adequate
[2017-01-19 11:21] LABS: Stomatocytes Few
[2017-01-19 11:23] LABS: Burr Cells FEW
[2017-01-19] MEDS ORDERED: GASTROGRAFIN 30 ML SOL ONE (13:24)
[2017-01-19] MEDS: AZITHROMYCIN 500MG/D5W 250ML 250 ML IV SCH (14:08)
[2017-01-19 21:22] LABS: Hematocrit 24.5 % (36.0-46.0); Hemoglobin 8.4 g/dL (12.2-16.2)
[2017-01-20] MEDS: SODIUM CHLORIDE 0.9% 1,000 ML IV SCH (01:53)
[2017-01-20 05:21] LABS: CONDITION Y; DEFINITIVE SEE PRINTOUT; Hematocrit 24.2 % (36.0-46.0); Mean Corpuscular Hgb Conc. 32.9 g/dL (32.0-36.0); Mean Corpuscular Volume 91.2 fL (80.0-100.0); Mean Platelet Volume 7.5 fL (7.4-10.4); Platelet Count (auto) 250 10^3/uL (140-450); Red Cell Distribution Width 16.5 % (11.6-16.0); SUSPECT SEE PRINTOUT; White Blood Cell 20.7 10^3/uL (4.4-10.8)
[2017-01-20] MEDS: Boost Glucose Control 8 Ounces PO SCH ×3 (05:32→18:00)
[2017-01-20 05:35] LABS: Metamyelocytes % 0; Myelocytes % 0; Promyelocytes % 0; Reactive Lymphocytes 0
[2017-01-20 05:40] VITALS: BP 120/91
[2017-01-20 06:44] LABS: Anisocytosis Moderate; Hypersegmented Neutrophils Present; Platelet Estimate AS
[2017-01-20 06:45] LABS: Stomatocytes Few
[2017-01-20 08:00] VITALS: BP 128/77
[2017-01-20] MEDS: cefTRIAXone 1GM/50ML D5W 50 ML IV SCH (08:56)
[2017-01-20] MEDS: PANTOPRAZOLE SODIUM 40 MG/10 ML VIAL IV SCH (08:57)
[2017-01-20] MEDS: MORPHINE SULF 30 mg ER tab PO SCH (08:57)
[2017-01-20] MEDS: MULTIPLE VITAMIN TAB PO SCH (08:57)
[2017-01-20] MEDS: FOLIC ACID 1 MG TAB PO SCH (08:57)
[2017-01-20] MEDS: DOCUSATE SOD 100 MG CAP PO SCH (08:57)
[2017-01-20] MEDS: HYDROXYCHLOROQUINE SULFATE 200 MG TAB PO SCH (08:57)
[2017-01-20] MEDS: AZITHROMYCIN 500MG/D5W 250ML 250 ML IV SCH (08:58)
[2017-01-20 09:00] VITALS: BP 128/77
[2017-01-20] MEDS: PRO-STAT 64 30ML PO SCH (10:00)
[2017-01-20 13:00] VITALS: BP 108/79
[2017-01-20 15:52] VITALS: BP 128/77
== END 2017-01-20 18:58 | disposition hospice, home (50) | DRG 136 ==
LOC: ER 02:01 → EDBD 02:01 → TELE 02:02 → TELE-EAST 12:28
PROVIDERS: ADMIT Internal Medicine; ATTEND Internal Medicine Pulmonary Disease
PROC: 30233N1 Transfusion of Nonautologous Red Blood Cells into Peripheral Vein, Percutaneous Approach (ICD-10-PCS; principal; 2017-01-16)
DX: C34.00 Malignant neoplasm of unspecified main bronchus (principal); I26.99 Other pulmonary embolism without acute cor pulmonale; E43 Unspecified severe protein-calorie malnutrition; G92 Toxic encephalopathy; D68.9 Coagulation defect, unspecified; J18.9 Pneumonia, unspecified organism; C18.9 Malignant neoplasm of colon, unspecified; E83.51 Hypocalcemia; J44.9 Chronic obstructive pulmonary disease, unspecified; D64.9 Anemia, unspecified; E87.6 Hypokalemia; M06.9 Rheumatoid arthritis, unspecified; K59.00 Constipation, unspecified; K25.9 Gastric ulcer, unspecified as acute or chronic, without hemorrhage or perforation; E11.65 Type 2 diabetes mellitus with hyperglycemia; D50.0 Iron deficiency anemia secondary to blood loss (chronic); I10 Essential (primary) hypertension; J44.0 Chronic obstructive pulmonary disease with (acute) lower respiratory infection; J98.11 Atelectasis; Z80.3 Family history of malignant neoplasm of breast; Z87.11 Personal history of peptic ulcer disease; Z85.038 Personal history of other malignant neoplasm of large intestine; Z80.6 Family history of leukemia; Z92.21 Personal history of antineoplastic chemotherapy; Z86.711 Personal history of pulmonary embolism; Z98.51 Tubal ligation status; Z68.26 Body mass index [BMI] 26.0-26.9, adult
CPT/HCPCS: 36415; 36430; 70450; 71010; 71020; 71260; 74176; 74177; 80048; 80053; 81001; 82140; 82150; 82962; 83010; 83036; 83605; 83615; 83690; 83735; 83880; 84443; 85007; 85014; 85018; 85025; 85027; 85045; 85379; 85610; 85730; 86850; 86880; 86900; 86901; 86920; 87040; 87070; 87081; 87205; 93005; 96365; 97110; 97163; C9113; J0696; J1642; J1815